=== PATIENT | male | born 1970 | race Hispanic/Latino ===

== ENCOUNTER 2023-02-11 16:36 | Inpatient (IN) | payer BC ==
[~2023-02-11] VITALS: Ht 165.1 cm; Wt 77.6 kg
[2023-02-11] MEDS ORDERED: CEFTRIAXONE 1G VIAL IVPB ONE (20:00)
[2023-02-11] MEDS ORDERED: ONDANSETRON 4MG INJ IVP ONE (20:00)
[2023-02-11] MEDS ORDERED: PANTOPRAZOLE 40 MG/VIAL IVP ONE (20:00)
[2023-02-11] MEDS ORDERED: 0.9%NACL 1000ML 1,000 ML IV ONE (20:00)
[2023-02-11 20:33] LABS: BASOPHILS # (AUTO) 0.04 K/uL (0.00-0.20); BASOPHILS % (AUTO) 0.4 % (0.0-5.0); EOSINOPHILS # (AUTO) 0.16 K/uL (0.00-0.70); EOSINOPHILS % (AUTO) 1.8 % (0.0-8.0); HEMATOCRIT 23.5 % (42-54); IMMATURE GRANULOCYTE ABSOLUTE 0.05 K/uL (0-1); LYMPHOCYTES # (AUTO) 1.5 K/uL (1.0-4.8); LYMPHOCYTES % (AUTO) 16.2 % (21.0-51.0); MEAN CORPUSCULAR HGB CONC 28.9 g/dL (32.0-36.0); MEAN CORPUSCULAR VOLUME 69.1 fL (79-99); MONOCYTES # (AUTO) 0.7 K/uL (0.1-1.0); MONOCYTES % (AUTO) 7.4 % (3.0-13.0); NEUTROPHILS # (AUTO) 6.6 K/uL (1.8-7.7); NEUTROPHILS % (AUTO) 73.6 % (40.0-77.0); NUCLEATED RED BLOOD CELLS 0.2 % (0.0-0.19); PLATELET COUNT (AUTO) 274 K/uL (130-400); RED CELL DISTRIBUTION WIDTH 26.5 % (11.0-15.5); WHITE BLOOD COUNT (AUTO) 8.9 K/uL (4.8-10.8)
[2023-02-11 20:39] LABS: CREATININE 0.8 mg/dL (0.5-1.5); POTASSIUM 3.1 mmol/L (3.5-5.1)
[2023-02-11] MEDS ORDERED: IOHEXOL 350 MG/ML 100ML INFUS..BTL IV ONE (20:45)
[2023-02-11 20:48] LABS: ALBUMIN 3.8 g/dL (3.5-5.0); BILIRUBIN,TOTAL 0.4 mg/dL (0.2-1.0); TOTAL PROTEIN, SERUM 7.8 g/dL (6.0-8.3)
[2023-02-11 21:36] LABS: APPEARANCE,URINE CLEAR (CLEAR); BILIRUBIN,URINE NEGATIVE (NEGATIVE); COLOR,URINE LIGHT-YELLOW (YELLOW); GLUCOSE, URINE (UA) NEGATIVE (NEGATIVE); KETONES,URINE NEGATIVE (NEGATIVE); LEUKOCYTE ESTERASE ,URINE NEGATIVE Leu/uL (NEGATIVE); NITRATE,URINE NEGATIVE (NEGATIVE); OCCULT BLOOD,URINE NEGATIVE (NEGATIVE); PROTEIN,URINE NEGATIVE (NEGATIVE); UROBILINOGEN,URINE 0.2 mg/dL (0.2-1.0)
[2023-02-11 21:38] LABS: ADD UA MICROSCOPIC YES
[2023-02-11 21:39] LABS: MUCUS,URINE RARE LPF (None Seen); RBC,URINE 0-1 /HPF (0-1)
[2023-02-11] MEDS ORDERED: DOCUSATE SODIUM 100 MG CAP PO PRN (22:00)
[2023-02-11] MEDS ORDERED: HYDRALAZINE 20MG/ML VIAL IV PRN (22:00)
[2023-02-11] MEDS: PANTOPRAZOLE 40MG INJ 80 MG in 0.9%NACL 100ML 100 ML IV SCH (22:00)
[2023-02-11] MEDS ORDERED: ONDANSETRON 4MG INJ IVP PRN (22:00)
[2023-02-11] MEDS ORDERED: TEMAZEPAM 15 MG CAPSULE PO PRN (22:00)
[2023-02-11] MEDS ORDERED: ACETAMINOPHEN 650 MG SUPPOSITORY RC PRN (22:00)
[2023-02-11] MEDS ORDERED: ACETAMINOPHEN 325 MG TAB PO PRN (22:00)
[2023-02-12] MEDS: 0.9%NACL 1000ML 1,000 ML IV SCH ×2 (00:33→12:07)
[2023-02-12 02:26] VITALS: BP 142/86; PULSE 79; RESP 18; O2SAT 100
[2023-02-12] MEDS ORDERED: POTASSIUM CHLORIDE 20MEQ/100ML 100 ML IV PRN (05:30)
[2023-02-12] MEDS ORDERED: MAGNESIUM 2GM PREMIX 50ML 50 ML IV PRN (05:30)
[2023-02-12 05:36] LABS: HEMATOCRIT 27.4 % (42-54); MEAN CORPUSCULAR HEMOGLOBIN 22.5 pg (27.0-33.0); MEAN CORPUSCULAR HGB CONC 30.7 g/dL (32.0-36.0); MEAN CORPUSCULAR VOLUME 73.3 fL (79-99); NUCLEATED RED BLOOD CELLS 0.3 % (0.0-0.19); RED BLOOD CELL COUNT(AUTO) 3.74 MIL/uL (4.50-6.20); RED CELL DISTRIBUTION WIDTH 23.8 % (11.0-15.5); WHITE BLOOD COUNT (AUTO) 7.1 K/uL (4.8-10.8)
[2023-02-12 05:56] LABS: CREATININE 0.7 mg/dL (0.5-1.5); MAGNESIUM 1.5 mg/dL (1.80-2.40); PHOSPHORUS 4.2 mg/dL (2.5-4.9); POTASSIUM 3.1 mmol/L (3.5-5.1)
[2023-02-12] MEDS: INSULIN HUMULIN R 100 UNIT/ML 3ML SQ SCH ×4 (06:07→21:00)
[2023-02-12] MEDS: KCL 20 MEQ ERTAB PO PRN (06:31)
[2023-02-12 08:00] VITALS: BP 143/81; PULSE 68; RESP 16
[2023-02-12 08:10] VITALS: O2SAT 98
[2023-02-12] MEDS: PANTOPRAZOLE 40MG INJ 80 MG in 0.9%NACL 100ML 100 ML IV SCH ×2 (08:47→22:49)
[2023-02-12 10:54] LABS: HEMATOCRIT 29.9 % (42-54)
[2023-02-12 12:00] VITALS: BP 128/79; PULSE 73; RESP 16
[2023-02-12] MEDS ORDERED: COMPOUND IV REFRIGERATED 1 EACH IVSOLN MISC PRN (12:00)
[2023-02-12 16:00] VITALS: BP 134/84; PULSE 69; RESP 16
[2023-02-12 16:17] LABS: HEMATOCRIT 28.8 % (42-54)
[2023-02-12 20:00] VITALS: BP 132/85; PULSE 78; RESP 18; O2SAT 99
[2023-02-12 22:26] LABS: HEMATOCRIT 28.3 % (42-54)
[2023-02-12] MEDS ORDERED: PEG 3350/NA SULF,BICARB,CL/KCL 4000 ML SOLN ONE (22:28)
[2023-02-12] MEDS ORDERED: LACTULOSE 20 GM/30 ML UDCUP ONE (22:28)
[2023-02-12] MEDS ORDERED: PEG 3350/NA SULF,BICARB,CL/KCL 4000 ML SOLN PO SCH (22:30)
[2023-02-12] MEDS ORDERED: LACTULOSE 20 GM/30 ML UDCUP PO SCH (22:30)
[2023-02-12] MEDS: POTASSIUM CHLORIDE 10% ELIXIR 20 MEQ/15 ML UDCUP PO PRN (23:25)
[2023-02-13] VITALS (22 sets, daily range): BP systolic 94–150; BP diastolic 52–93; PULSE 63–98; RESP 12–20; O2SAT 96–97
[2023-02-13] MEDS: POTASSIUM CHLORIDE 10% ELIXIR 20 MEQ/15 ML UDCUP PO PRN (00:41)
[2023-02-13 05:13] LABS: HEMATOCRIT 29.1 % (42-54); MEAN CORPUSCULAR HEMOGLOBIN 22.3 pg (27.0-33.0); MEAN CORPUSCULAR HGB CONC 30.9 g/dL (32.0-36.0); MEAN CORPUSCULAR VOLUME 72.2 fL (79-99); RED BLOOD CELL COUNT(AUTO) 4.03 MIL/uL (4.50-6.20); RED CELL DISTRIBUTION WIDTH 23.3 % (11.0-15.5); WHITE BLOOD COUNT (AUTO) 6.8 K/uL (4.8-10.8)
[2023-02-13 05:21] LABS: HEMOGLOBIN A1C 5.4 % (4.0-6.0)
[2023-02-13] MEDS: INSULIN HUMULIN R 100 UNIT/ML 3ML SQ SCH ×4 (05:24→21:00)
[2023-02-13 05:37] LABS: % IRON SATURATION 1.9 % (30-44)
[2023-02-13 06:19] LABS: CARBON DIOXIDE 27 mmol/L (21-32); CHLORIDE 101 mmol/L (101-111); CREATININE 0.9 mg/dL (0.5-1.5); FERRITIN 12 ng/mL (30-400); GLOMERULAR FILTR. RATE CALC 103 mL/min (>90); GLUCOSE,RANDOM 92 mg/dL (70-105); POTASSIUM 3.7 mmol/L (3.5-5.1); SODIUM SERUM 139 mmol/L (136-145); UREA NITROGEN, BLOOD 9 mg/dL (7-18)
[2023-02-13] MEDS: LISINOPRIL 5 MG TABLET PO SCH (08:42)
[2023-02-13 09:24] LABS: INR < 0.93 (0.85-1.15); PROTHROMBIN TIME 10.6 SEC (9.6-11.6)
[2023-02-13 09:25] LABS: PARTIAL THROMBOPLASTIN TIME 24.3 SEC (26.3-35.5)
[2023-02-13] MEDS ORDERED: PROPOFOL 10 MG/ML 20ML VIAL IV ONE ×4 (10:02→10:43)
[2023-02-13] MEDS ORDERED: ONDANSETRON 4MG INJ ONE (10:04)
[2023-02-13] MEDS ORDERED: DEXAMETHASONE SOD PHOSPHATE 10MG/ML 1ML VIAL ONE (10:04)
[2023-02-13] MEDS ORDERED: COMPOUND IV MISC 1 EACH IVSOLN MISC PRN (11:00)
[2023-02-13] MEDS ORDERED: COMPOUND IV REFRIGERATED 1 EACH IVSOLN MISC PRN (12:30)
[2023-02-13] MEDS ORDERED: IRON SUCROSE COMPLEX 300 MG in 0.9% NACL 250ML IV ONE (13:00)
[2023-02-13] MEDS: 0.9%NACL 1000ML 1,000 ML IV SCH ×2 (14:19→14:20)
[2023-02-13] MEDS: HYDROCORTISONE 25 MG SUPPOSITORY PR SCH (21:21)
[2023-02-13] MEDS: PANTOPRAZOLE 40 MG/VIAL IVP SCH (21:21)
[2023-02-14] VITALS (21 sets, daily range): BP systolic 117–153; BP diastolic 67–89; PULSE 66–83; RESP 14–20; O2SAT 97–100
[2023-02-14] MEDS: 0.9%NACL 1000ML 1,000 ML IV SCH ×2 (03:24→20:03)
[2023-02-14] MEDS: INSULIN HUMULIN R 100 UNIT/ML 3ML SQ SCH ×4 (06:21→20:03)
[2023-02-14] MEDS: PANTOPRAZOLE 40 MG TAB DR PO SCH (09:00)
[2023-02-14] MEDS: LISINOPRIL 5 MG TABLET PO SCH (09:00)
[2023-02-14] MEDS: PANTOPRAZOLE 40 MG/VIAL IVP SCH ×2 (09:52→20:08)
[2023-02-14] MEDS: HYDROCORTISONE 25 MG SUPPOSITORY PR SCH ×2 (09:54→20:08)
[2023-02-14] MEDS ORDERED: LIDOCAINE HCL 1% 20 ML VIAL ONE (12:28)
[2023-02-14] MEDS ORDERED: PROPOFOL 10 MG/ML 20ML VIAL IV ONE ×2 (12:28→13:09)
[2023-02-14] MEDS ORDERED: IRON SUCROSE COMPLEX 300 MG in 0.9% NACL 250ML 250 ML IV ONE (21:00)
[2023-02-15] VITALS (8 sets, daily range): BP systolic 113–143; BP diastolic 66–99; PULSE 74–93; RESP 16–19; O2SAT 96–99
[2023-02-15] MEDS: 0.9%NACL 1000ML 1,000 ML IV SCH ×2 (05:15→19:29)
[2023-02-15 05:22] LABS: HEMATOCRIT 25.6 % (42-54); MEAN CORPUSCULAR HEMOGLOBIN 22.4 pg (27.0-33.0); MEAN CORPUSCULAR HGB CONC 30.1 g/dL (32.0-36.0); MEAN CORPUSCULAR VOLUME 74.4 fL (79-99); NUCLEATED RED BLOOD CELLS 0.4 % (0.0-0.19); RED BLOOD CELL COUNT(AUTO) 3.44 MIL/uL (4.50-6.20); RED CELL DISTRIBUTION WIDTH 24.4 % (11.0-15.5); WHITE BLOOD COUNT (AUTO) 9.6 K/uL (4.8-10.8)
[2023-02-15] MEDS: INSULIN HUMULIN R 100 UNIT/ML 3ML SQ SCH ×4 (05:28→19:57)
[2023-02-15] MEDS: PANTOPRAZOLE 40 MG TAB DR PO SCH (09:00)
[2023-02-15] MEDS: PANTOPRAZOLE 40 MG/VIAL IVP SCH ×2 (10:14→19:46)
[2023-02-15] MEDS: LISINOPRIL 5 MG TABLET PO SCH (10:15)
[2023-02-15] MEDS: HYDROCORTISONE 25 MG SUPPOSITORY PR SCH ×2 (10:15→19:46)
[2023-02-15] MEDS ORDERED: IOHEXOL 350 MG/ML 100ML INFUS..BTL IV ONE (15:29)
[2023-02-16 04:33] LABS: HEMATOCRIT 27.9 % (42-54); MEAN CORPUSCULAR HEMOGLOBIN 22.6 pg (27.0-33.0); MEAN CORPUSCULAR HGB CONC 29.7 g/dL (32.0-36.0); MEAN CORPUSCULAR VOLUME 75.8 fL (79-99); NUCLEATED RED BLOOD CELLS 0.6 % (0.0-0.19); RED BLOOD CELL COUNT(AUTO) 3.68 MIL/uL (4.50-6.20); RED CELL DISTRIBUTION WIDTH 24.4 % (11.0-15.5); WHITE BLOOD COUNT (AUTO) 10.9 K/uL (4.8-10.8)
[2023-02-16 04:36] VITALS: BP 128/63; PULSE 61; RESP 18
[2023-02-16 05:00] LABS: CREATININE 0.8 mg/dL (0.5-1.5); MAGNESIUM 1.8 mg/dL (1.80-2.40); POTASSIUM 3.2 mmol/L (3.5-5.1)
[2023-02-16] MEDS: KCL 20 MEQ ERTAB PO PRN ×2 (05:39→12:20)
[2023-02-16] MEDS: INSULIN HUMULIN R 100 UNIT/ML 3ML SQ SCH ×3 (06:15→16:07)
[2023-02-16 07:55] VITALS: O2SAT 98
[2023-02-16 08:00] VITALS: BP 128/75; PULSE 68; RESP 16
[2023-02-16] MEDS: 0.9%NACL 1000ML 1,000 ML IV SCH (08:40)
[2023-02-16] MEDS: PANTOPRAZOLE 40 MG/VIAL IVP SCH (09:00)
[2023-02-16] MEDS: PANTOPRAZOLE 40 MG TAB DR PO SCH (09:36)
[2023-02-16] MEDS: LISINOPRIL 5 MG TABLET PO SCH (09:36)
[2023-02-16] MEDS: HYDROCORTISONE 25 MG SUPPOSITORY PR SCH (09:36)
[2023-02-16] MEDS ORDERED: PANT40TA PO (11:58)
[2023-02-16] MEDS ORDERED: LISI5TAB21 PO (11:58)
[2023-02-16 12:00] VITALS: BP 129/80; PULSE 68; RESP 18
[2023-02-16] MEDS ORDERED: IRON SUCROSE COMPLEX 300 MG in 0.9% NACL 250ML 250 ML IV ONE (21:00)
== END 2023-02-16 17:05 | disposition home or self-care (01) | DRG 368 ==
LOC: EDH 16:36 → OBSVTOIN 21:46 → EDHIP 21:46 → 4CH 02-12 01:52
PROVIDERS: ADMIT Internal Medicine Pulmonary Disease; ATTEND Internal Medicine Pulmonary Disease
PROC: 30233N1 Transfusion of Nonautologous Red Blood Cells into Peripheral Vein, Percutaneous Approach (ICD-10-PCS; principal; 2023-02-12)
PROC: 0DBH8ZX Excision of Cecum, Via Natural or Artificial Opening Endoscopic, Diagnostic (ICD-10-PCS; 2023-02-13)
PROC: 0DBP8ZX Excision of Rectum, Via Natural or Artificial Opening Endoscopic, Diagnostic (ICD-10-PCS; 2023-02-13)
PROC: 0DBM8ZX Excision of Descending Colon, Via Natural or Artificial Opening Endoscopic, Diagnostic (ICD-10-PCS; 2023-02-13)
PROC: 0DB98ZX Excision of Duodenum, Via Natural or Artificial Opening Endoscopic, Diagnostic (ICD-10-PCS; 2023-02-13)
PROC: 0DB68ZX Excision of Stomach, Via Natural or Artificial Opening Endoscopic, Diagnostic (ICD-10-PCS; 2023-02-13)
PROC: 0DB48ZX Excision of Esophagogastric Junction, Via Natural or Artificial Opening Endoscopic, Diagnostic (ICD-10-PCS; 2023-02-13)
PROC: 0DJD8ZZ Inspection of Lower Intestinal Tract, Via Natural or Artificial Opening Endoscopic (ICD-10-PCS; 2023-02-14)
DX: K20.81 Other esophagitis with bleeding (principal); K29.01 Acute gastritis with bleeding; D62 Acute posthemorrhagic anemia; I10 Essential (primary) hypertension; E83.51 Hypocalcemia; E87.6 Hypokalemia; E87.8 Other disorders of electrolyte and fluid balance, not elsewhere classified; E83.42 Hypomagnesemia; K64.8 Other hemorrhoids; K63.5 Polyp of colon; G89.29 Other chronic pain; Z83.3 Family history of diabetes mellitus; Z79.899 Other long term (current) drug therapy; K27.9 Peptic ulcer, site unspecified, unspecified as acute or chronic, without hemorrhage or perforation
CPT/HCPCS: 36415; 43239; 44360; 45380; 71045; 74174; 74177; 80048; 80053; 81001; 82270; 82607; 82728; 82746; 82948; 83036; 83540; 83550; 83690; 83735; 84100; 84484; 85014; 85018; 85025; 85027; 85610; 85730; 86850; 86900; 86901; 86923; 88305; 88312; A4606; C9113; G0378; J0696; J1100; J1756; J2405; J2704; J3475; J7030; J7050; P9016; Q9967; A4215; A4216; A4222; A4223; A4620; A4657; A7002; J3490